=== PATIENT | female | born 1975 | race Caucasian/White ===

== ENCOUNTER 2018-10-18 17:12 | Emergency (ER) | payer OTHER ==
[~2018-10-18] VITALS: Ht 175.3 cm; Wt 111.1 kg
[~2018-10-18 17:12] MED LIST: ACET500; ACET500 PO; ALBU90I INH; ALBU90OI6 INH; ALBU90OI61 INH; AMOX500 PO; ASPI81EC PO; Aspir 8181 MG PO; Bactrim Ds Tab1 EACH PO; CARB200 PO; CEPH500 PO; CIPR500 PO; CLIN150 PO; CLIN300 PO; CLON.1; CLON.2 PO; CLON.5; CLON.5 PO; CLON1; CLON1 PO; CLON2 PO; CODGUAEL PO; CRUTCH2 USE; CYCL10 PO; Cleocin HCl150 MG PO; DIAZ5 PO; DULO60; ERYT500 PO; Effexor Xr150 MG PO; FENO48 PO; FLUC150A PO; FLUO20; FLUO20 PO; GABA300 PO; GLYB5 PO; HYDACE10B; HYDACE10B PO; HYDMOR2 PO; IBUP200; IBUP600 PO; IBUP800 PO; INSDET100 SUBQ; INSR10I SUBQ; INSUASPI SUBQ; INSULANI SUBQ; INSULANPEN SC; LISI20 PO; LISI5 PO; LISINPRIL; METF500; METF500 PO; METF500C PO; METH10; METH10 PO; METH40; OXYACE5T PO; OXYC10ER PO; OXYC20ER; OXYC5; OXYC5 PO; OXYCODONE PO; PENVK500 PO; PERM5TC TOP; PHENA200 PO; PHENY100ER; PROM25 PO; PROM50S PR; RANI150 PO; ROSU10TA; ROSU10TA PO; RXCLIN PO; RXPENVK250 PO; SPIR25; SULTRIDS PO; TOPI100; TOPI100 PO; TRAM50 PO; TRAZ100 PO; TRAZ50 PO; Ultram50 MG PO; VENL75ER
== END 2018-10-18 17:38 | disposition left against medical advice (07) ==
LOC: ER 17:12
DX: Z53.21 Procedure and treatment not carried out due to patient leaving prior to being seen by health care provider (principal)
CPT/HCPCS: 82947

== ENCOUNTER 2019-09-13 15:24 | Emergency (ER) | payer OTHER ==
[~2019-09-13] VITALS: Ht 175.3 cm; Wt 106.1 kg
[2019-09-13] MEDS ORDERED: ALPR.5 PO (15:37)
[2019-09-13] MEDS ORDERED: DULO60 PO (15:37)
[2019-09-13] MEDS ORDERED: ASPIR 8181 M1 PO (15:37)
[2019-09-13] MEDS ORDERED: Lasix20 MG PO (15:38)
[2019-09-13] MEDS ORDERED: Nicoderm Cq1 EACH TOP (15:38)
[2019-09-13] MEDS ORDERED: INSDET100 SC (15:38)
[2019-09-13] MEDS ORDERED: Klor-Con 1010 MEQ PO (15:39)
[2019-09-13] MEDS ORDERED: NOVOLOG100 UNIT/1 SC (15:40)
[2019-09-13 19:21] LABS: Anion Gap 3 mmol/L (6-16); Blood Urea Nitrogen 25 mg/dL (8-24); CO2, Blood 30 mmol/L (21-32); Calcium, Blood 9.4 mg/dL (8.5-10.1); Chloride, Blood 104 mmol/L (98-108); Creatinine, Blood 0.93 mg/dL (0.40-1.00); Glomerular Filtration Rate >60 (60-); Glucose, Blood 140 mg/dL (70-99); Potassium, Blood 3.9 mmol/L (3.5-5.5); Sodium, Blood 137 mmol/L (136-145)
[2019-09-13] MEDS ORDERED: Prednisone20 MG PO (19:54)
[2019-09-13] MEDS ORDERED: Zovirax800 MG PO (19:54)
== END 2019-09-13 20:09 | disposition home or self-care (01) ==
LOC: ER 15:24
PROVIDERS: Emergency Medicine
DX: G51.0 Bell's palsy (principal); F32.9 Major depressive disorder, single episode, unspecified; F41.9 Anxiety disorder, unspecified; E11.9 Type 2 diabetes mellitus without complications; F17.200 Nicotine dependence, unspecified, uncomplicated; Z88.6 Allergy status to analgesic agent; Z91.013 Allergy to seafood; Z88.5 Allergy status to narcotic agent; Z88.8 Allergy status to other drugs, medicaments and biological substances; Z79.899 Other long term (current) drug therapy; Z79.82 Long term (current) use of aspirin; Z79.4 Long term (current) use of insulin
CPT/HCPCS: 36415; 70450; 80048; 93005; 93010; 99284-25

== ENCOUNTER → 2019-10-05 | Outpatient (CLI) | payer OTHER ==
[~2019-10-05] MED LIST changes: +ALPR.5 PO; +ASPIR 8181 M1 PO; +DULO60 PO; +INSDET100 SC; +Klor-Con 1010 MEQ PO; +Lasix20 MG PO; +NOVOLOG100 UNIT/1 SC; +Nicoderm Cq1 EACH TOP; +Prednisone20 MG PO; +Zovirax800 MG PO
== END | disposition home or self-care (01) ==
LOC: LAB 09:30 → LAB SHORT 09:30
DX: N39.0 Urinary tract infection, site not specified (principal)
CPT/HCPCS: 87077; 87086; 87186

== ENCOUNTER → 2020-08-24 | Outpatient (CLI) | payer OTHER ==
[2020-08-31 14:09] LABS: 6-ACETYLMORPHINE Not Detected (.)
== END | disposition home or self-care (01) ==
LOC: LAB SHORT 13:18 → LAB EV 13:18
PROVIDERS: Family Medicine
DX: Z51.81 Encounter for therapeutic drug level monitoring (principal); Z79.899 Other long term (current) drug therapy
CPT/HCPCS: G0480

== ENCOUNTER → 2020-08-29 | Outpatient (CLI) | payer OTHER ==
[2020-09-05 16:10] LABS: 6-ACETYLMORPHINE >87 (.)
== END | disposition home or self-care (01) ==
LOC: LAB EV 14:54 → LAB SHORT 14:54
PROVIDERS: Family Medicine
DX: F15.10 Other stimulant abuse, uncomplicated (principal)
CPT/HCPCS: G0480

== ENCOUNTER → 2023-04-09 | Outpatient (CLI) | payer OTHER ==
[2023-04-09 13:25] LABS: Albumin, Blood 3.6 g/dL (3.4-5.0); Albumin/Globulin Ratio 0.9 (0.8-1.8); Bun/Creatinine Ratio 15.8 (12.0-20.0); Calcium, Blood 9.2 mg/dL (8.5-10.1); Creatinine, Blood 0.82 mg/dL (0.40-1.00); Globulin, Blood 4.2 g/dL (2.2-4.0); Potassium, Blood 4.1 mmol/L (3.5-5.5); Total Protein, Blood 7.8 g/dL (6.4-8.2)
[2023-04-11 11:11] LABS: HEMOGLOBIN A1C 10.9 % (4.8-5.6)
[2023-04-12 14:29] LABS: APTIMA MEDIA TYPE Unisex Swab; C. TRACHOMATIS BY TMA Negative (Negative); N. GONORRHOEAE BY TMA Negative (Negative); SPECIMEN SOURCE Not Provided
== END | disposition home or self-care (01) ==
LOC: LAB SHORT 12:02 → LAB 12:02
PROVIDERS: Family Medicine
DX: E11.9 Type 2 diabetes mellitus without complications (principal); B37.31 Acute candidiasis of vulva and vagina
CPT/HCPCS: 80053; 83036; 87491; 87591

== ENCOUNTER 2023-08-20 12:35 | Day surgery (SDC) | payer OTHER ==
[~2023-08-20] VITALS: Ht 175.3 cm; Wt 121.6 kg
[2023-08-20 17:29] VITALS: BP 134/84
== END 2023-08-20 17:38 | disposition home or self-care (01) ==
LOC: ORSCSDS 12:35
PROC: 0DB78ZX Excision of Stomach, Pylorus, Via Natural or Artificial Opening Endoscopic, Diagnostic (ICD-10-PCS; principal; 2023-08-20)
PROC: 0DB98ZX Excision of Duodenum, Via Natural or Artificial Opening Endoscopic, Diagnostic (ICD-10-PCS; principal; 2023-08-20)
PROC: 0DB58ZX Excision of Esophagus, Via Natural or Artificial Opening Endoscopic, Diagnostic (ICD-10-PCS; principal; 2023-08-20)
PROC: 0DBC8ZX Excision of Ileocecal Valve, Via Natural or Artificial Opening Endoscopic, Diagnostic (ICD-10-PCS; principal; 2023-08-20)
DX: R11.0 Nausea (principal); K62.5 Hemorrhage of anus and rectum; K59.00 Constipation, unspecified; R10.13 Epigastric pain; K29.70 Gastritis, unspecified, without bleeding; K63.3 Ulcer of intestine; K44.9 Diaphragmatic hernia without obstruction or gangrene; E03.9 Hypothyroidism, unspecified; K64.8 Other hemorrhoids; E11.9 Type 2 diabetes mellitus without complications; K21.9 Gastro-esophageal reflux disease without esophagitis; Z79.899 Other long term (current) drug therapy; F17.290 Nicotine dependence, other tobacco product, uncomplicated; E66.9 Obesity, unspecified; Z68.39 Body mass index [BMI] 39.0-39.9, adult; Z79.84 Long term (current) use of oral hypoglycemic drugs; G47.33 Obstructive sleep apnea (adult) (pediatric); F31.9 Bipolar disorder, unspecified; F43.10 Post-traumatic stress disorder, unspecified

== ENCOUNTER → 2023-10-17 | Outpatient (CLI) | payer OTHER ==
[~2023-10-17] MED LIST changes: +ATOR40TA PO; +CEFD300 PO; +GLARGINE INSULIN; +METF500C; +METHADONE; +OMEP20ER; +PROM12.5S; +QUET100 PO; +SERT100; +STEGLATRO15 MG; +STEGLATRO5 MG
[2023-10-20 11:08] LABS: Creatinine, Urine Random 69.1 mg/dL (27.00-270.00); Microalb/Creat Ratio UR, Rand 12.272 mg/g (0.000-30.000); Microalbumin, Random Urine 8.48 mg/L (0.000-20.000)
== END ==
LOC: LAB 16:16 → LAB SHORT 16:16
PROVIDERS: Physician Assistant
DX: E11.65 Type 2 diabetes mellitus with hyperglycemia (principal); Z79.899 Other long term (current) drug therapy; Z79.4 Long term (current) use of insulin
CPT/HCPCS: 82043; 82306; 82570

== ENCOUNTER 2024-01-19 07:11 | Day surgery (SDC) | payer OTHER ==
[~2024-01-19] VITALS: Ht 175.3 cm; Wt 116.4 kg
[2024-01-19] MEDS ORDERED: Lactated Ringer's 1,000 ML IV ONE ×2 (07:51→09:05)
[2024-01-19] MEDS ORDERED: MIRALAX17 GM (08:36)
[2024-01-19] MEDS ORDERED: FURO40 (08:36)
[2024-01-19] MEDS ORDERED: TRULICITY0.75 MG/01 (08:36)
[2024-01-19] MEDS ORDERED: BASAGLAR K100 UNIT/1 (08:36)
[2024-01-19] MEDS ORDERED: ATOR40TA (08:36)
[2024-01-19] MEDS ORDERED: DISU250 (08:42)
[2024-01-19] MEDS ORDERED: propofoL 50 ML IV ONE (09:43)
[2024-01-19 10:52] VITALS: BP 113/71
== END 2024-01-19 10:45 | disposition home or self-care (01) ==
LOC: ORSCSDS 07:11
PROVIDERS: Specialist
PROC: 0DBN8ZX Excision of Sigmoid Colon, Via Natural or Artificial Opening Endoscopic, Diagnostic (ICD-10-PCS; principal; 2024-01-19 09:30)
DX: Z87.19 Personal history of other diseases of the digestive system (principal); K63.5 Polyp of colon; Z80.0 Family history of malignant neoplasm of digestive organs; E78.5 Hyperlipidemia, unspecified; E11.22 Type 2 diabetes mellitus with diabetic chronic kidney disease; I12.9 Hypertensive chronic kidney disease with stage 1 through stage 4 chronic kidney disease, or unspecified chronic kidney disease; N18.9 Chronic kidney disease, unspecified; E03.9 Hypothyroidism, unspecified; K21.9 Gastro-esophageal reflux disease without esophagitis; E66.01 Morbid (severe) obesity due to excess calories; Z68.38 Body mass index [BMI] 38.0-38.9, adult; Z79.4 Long term (current) use of insulin; Z79.85 Long-term (current) use of injectable non-insulin antidiabetic drugs; Z79.899 Other long term (current) drug therapy; Z87.891 Personal history of nicotine dependence
CPT/HCPCS: 82947; 88305; J2704; J7120

== ENCOUNTER → 2024-06-26 | Outpatient (CLI) | payer OTHER ==
[~2024-06-26] MED LIST changes: +ATOR40TA; +BASAGLAR K100 UNIT/1; +DISU250; +FURO40; +MIRALAX17 GM; +TRULICITY0.75 MG/01
== END ==
LOC: LAB SHORT 15:57 → LAB 15:57
DX: R10.30 Lower abdominal pain, unspecified (principal); R82.90 Unspecified abnormal findings in urine
CPT/HCPCS: 87086

== ENCOUNTER 2024-07-06 19:30 | Emergency (ER) | payer OTHER ==
[~2024-07-06] VITALS: Ht 175.3 cm; Wt 111.1 kg
[2024-07-06 20:14] LABS: BASOPHILS ABSOLUTE AUTO 0.08 K/mm3 (0.00-0.23); BASOPHILS PERCENT AUTO 1 % (0-2); EOSINOPHILS ABSOLUTE AUTO 0.16 K/mm3 (0.00-0.68); EOSINOPHILS PERCENT AUTO 2 % (0-6); Hematocrit 47.4 % (33.0-51.0); Hemoglobin 16.1 g/dL (11.5-16.0); IMMATURE GRAN ABSOLUTE AUTO 0.07 K/mm3 (0.00-0.10); IMMATURE GRAN PERCENT AUTO 1 % (0-1); LYMPHOCYTES ABSOLUTE AUTO 3.13 K/mm3 (0.84-5.20); LYMPHOCYTES PERCENT AUTO 32 % (21-46); MONOCYTES PERCENT AUTO 4 % (4-13); Mean Corpuscular HGB 31.6 pg (26.0-34.0); Mean Corpuscular Volume 93 fL (80-100); Mean Platelet Volume 10.2 fL (9.1-12.4); NEUTROPHILS ABSOLUTE AUTO 5.98 K/mm3 (1.96-9.15); NEUTROPHILS PERCENT AUTO 61 % (41-73); Platelet Count 166 K/mm3 (150-400); RDW Coefficient Variation 13.9 % (11.7-14.2); RDW Standard Deviation 47.7 fL (35.1-46.3); Red Blood Cell Count 5.09 M/mm3 (3.80-5.20); White Blood Cell Count 9.82 K/mm3 (4.00-11.30)
[2024-07-06 20:28] LABS: Albumin, Blood 3.4 g/dL (3.4-5.0); Albumin/Globulin Ratio 0.8 (0.8-1.8); Bilirubin, Total 0.9 mg/dL (0.1-1.0); Bun/Creatinine Ratio 13.6 (12.0-20.0); Calcium, Blood 8.9 mg/dL (8.5-10.1); Creatinine, Blood 0.66 mg/dL (0.40-1.00); Globulin, Blood 4.4 g/dL (2.2-4.0); Potassium, Blood 4.4 mmol/L (3.5-5.5); Total Protein, Blood 7.8 g/dL (6.4-8.2)
[2024-07-06 21:15] VITALS: BP 139/85
[2024-07-06] MEDS ORDERED: FentaNYL Citrate 50 MCG/ML 2 ML Injection IV ONE (23:25)
[2024-07-07] MEDS ORDERED: RX Prepack 6 Tabs Oxycodone 5mg UD ONE (00:40)
== END 2024-07-07 01:12 | disposition home or self-care (01) ==
LOC: ER 19:30
PROVIDERS: Student in an Organized Health Care Education/Training Program
DX: S82.841A Displaced bimalleolar fracture of right lower leg, initial encounter for closed fracture (principal); W19.XXXA Unspecified fall, initial encounter; R55 Syncope and collapse; E11.9 Type 2 diabetes mellitus without complications; F32.A Depression, unspecified; F17.200 Nicotine dependence, unspecified, uncomplicated; Z88.8 Allergy status to other drugs, medicaments and biological substances; Z88.6 Allergy status to analgesic agent; Z88.5 Allergy status to narcotic agent; Z91.013 Allergy to seafood; Z79.4 Long term (current) use of insulin; Z79.899 Other long term (current) drug therapy
CPT/HCPCS: 73610; 80053; 85025; 93005; 93010; 96374; 99284-25; A9270; J3010

== ENCOUNTER 2024-10-22 12:01 | Emergency (ER) | payer OTHER ==
[~2024-10-22] VITALS: Ht 175.3 cm; Wt 111.1 kg
[2024-10-22 12:17] VITALS: BP 109/76
[2024-10-22 13:27] LABS: BASOPHILS ABSOLUTE AUTO 0.09 K/mm3 (0.00-0.23); BASOPHILS PERCENT AUTO 1 % (0-2); EOSINOPHILS ABSOLUTE AUTO 0.23 K/mm3 (0.00-0.68); EOSINOPHILS PERCENT AUTO 3 % (0-6); Hematocrit 46.4 % (33.0-51.0); Hemoglobin 15.4 g/dL (11.5-16.0); IMMATURE GRAN ABSOLUTE AUTO 0.03 K/mm3 (0.00-0.10); IMMATURE GRAN PERCENT AUTO 0 % (0-1); LYMPHOCYTES ABSOLUTE AUTO 3.00 K/mm3 (0.84-5.20); LYMPHOCYTES PERCENT AUTO 35 % (21-46); MONOCYTES ABSOLUTE AUTO 0.47 K/mm3 (0.16-1.47); MONOCYTES PERCENT AUTO 6 % (4-13); Mean Corpuscular HGB Conc 33.2 g/dL (31.5-36.5); Mean Corpuscular Volume 98 fL (80-100); NEUTROPHILS ABSOLUTE AUTO 4.69 K/mm3 (1.96-9.15); NEUTROPHILS PERCENT AUTO 55 % (41-73); NRBC ABSOLUTE 0.00 K/mm3 (0.00-0.02); NRBC Auto 0.0 /100 WBC (0.0-0.2); Platelet Count 121 K/mm3 (150-400); RDW Coefficient Variation 13.1 % (11.7-14.2); RDW Standard Deviation 46.7 fL (35.1-46.3)
[2024-10-22 13:43] LABS: Alanine Aminotransfer (ALT/SGP 21.0 U/L (12-78); Albumin, Blood 3.5 g/dL (3.4-5.0); Albumin/Globulin Ratio 0.8 (0.8-1.8); Anion Gap 9.0 mmol/L (3-11); Aspartate Aminotrans (AST/SGOT 24.0 U/L (12-37); Bilirubin, Total 1.1 mg/dL (0.1-1.0); Blood Urea Nitrogen 10.0 mg/dL (8-24); CO2, Blood 29.0 mmol/L (21-32); Calcium, Blood 9.2 mg/dL (8.5-10.1); Chloride, Blood 99.0 mmol/L (98-108); Creatinine, Blood 0.63 mg/dL (0.40-1.00); Globulin, Blood 4.2 g/dL (2.2-4.0); Glucose, Blood 322.0 mg/dL (70-99); Potassium, Blood 4.2 mmol/L (3.5-5.5); Sodium, Blood 133.0 mmol/L (136-145); Total Protein, Blood 7.7 g/dL (6.4-8.2)
== END 2024-10-22 14:57 | disposition left against medical advice (07) ==
LOC: ER 12:01
PROVIDERS: Student in an Organized Health Care Education/Training Program
DX: N39.3 Stress incontinence (female) (male) (principal); Z53.29 Procedure and treatment not carried out because of patient's decision for other reasons; E11.9 Type 2 diabetes mellitus without complications; F43.10 Post-traumatic stress disorder, unspecified; F17.200 Nicotine dependence, unspecified, uncomplicated; Z88.5 Allergy status to narcotic agent; Z88.8 Allergy status to other drugs, medicaments and biological substances; Z79.899 Other long term (current) drug therapy; Z79.4 Long term (current) use of insulin
CPT/HCPCS: 80053; 85025; 99283